=== PATIENT | female | born 1960 | race Caucasian/White ===

== ENCOUNTER 2021-12-19 09:57 | Outpatient (CLI) | payer OTHER ==
[2021-12-19] MEDS ORDERED: Lidocaine 1% PF 5 ML VIAL ONE (11:14)
[2021-12-19] MEDS ORDERED: Sodium Bicarbonate 2.5 MEQ/5 ML VIAL ONE (11:14)
[2021-12-19 11:33] VITALS: BP 153/74; TEMP 97.6
== END 2021-12-19 11:30 | disposition home or self-care (01) ==
LOC: CSHULT 09:57
PROVIDERS: ATTEND Student in an Organized Health Care Education/Training Program
DX: K11.8 Other diseases of salivary glands (principal); Z53.9 Procedure and treatment not carried out, unspecified reason

== ENCOUNTER 2022-08-24 11:03 | Outpatient (CLI) | payer OTHER | END 2022-08-24 11:04 | disposition home or self-care (01) | LOC: CSHCT 11:03 | PROVIDERS: ATTEND Family Medicine | DX: Z12.2 Encounter for screening for malignant neoplasm of respiratory organs (principal); F17.210 Nicotine dependence, cigarettes, uncomplicated; J43.9 Emphysema, unspecified | CPT/HCPCS: 71271 ==

== ENCOUNTER 2022-08-28 12:03 | Outpatient (CLI) | payer OTHER ==
[~2022-08-28 12:03] MED LIST: Iopamidol 300 61% 100 ML VIAL FS ONE
== END 2022-08-28 12:04 | disposition home or self-care (01) ==
LOC: CSHCT 12:03
PROVIDERS: ATTEND Internal Medicine Hematology & Oncology
DX: C85.90 Non-Hodgkin lymphoma, unspecified, unspecified site (principal); D49.0 Neoplasm of unspecified behavior of digestive system; R59.9 Enlarged lymph nodes, unspecified; J43.2 Centrilobular emphysema
CPT/HCPCS: 70491

== ENCOUNTER 2023-05-18 10:32 | Outpatient (CLI) | payer OTHER | END 2023-05-18 10:33 | disposition home or self-care (01) | LOC: CSHMAMMO 10:32 | PROVIDERS: ATTEND Family Medicine | DX: Z13.820 Encounter for screening for osteoporosis (principal); Z78.0 Asymptomatic menopausal state; M85.851 Other specified disorders of bone density and structure, right thigh; M85.852 Other specified disorders of bone density and structure, left thigh | CPT/HCPCS: 77080 ==